=== PATIENT | male | born 1985 | race Caucasian/White ===

== ENCOUNTER 2016-07-05 02:43 | Emergency (ER) | payer OTHER ==
[~2016-07-05] VITALS: Ht 167.6 cm; Wt 83.9 kg
[2016-07-05 02:49] VITALS: BP 139/85
[2016-07-05] MEDS ORDERED: HYDROmorphone HCL 1 MG/ML SYRINGE (J1170) IV ONE ×2 (03:45→06:15)
[2016-07-05] MEDS ORDERED: NS 1,000 ML IV ONE (03:45)
[2016-07-05] MEDS ORDERED: METOCLOPRAMIDE INJ 10MG/2ML VIAL (J2765) IV ONE (03:45)
[2016-07-05 04:14] LABS: BASO % 0.1 % (0.0-1.0); EOS # 0.2 K/mm3 (0.0-0.50); EOS % 1.5 % (0.0-3.0); LARGE UNSTAINED CELL # 0.1 K/mm3 (0.0-0.4); LARGE UNSTAINED CELL % 0.5 % (0.0-4.0); LYMPH # 0.7 K/mm3 (1.5-4.5); LYMPH % 3.7 % (24.0-44.0); MEAN CORPUSCULAR HEMOGLOBIN 30.9 pg (27.0-33.0); MEAN CORPUSCULAR HGB CONC 35.2 g/dl (32.0-36.5); MEAN CORPUSCULAR VOLUME 87.6 fl (80.0-96.0); MONO # 0.7 K/mm3 (0.0-0.8); MONO % 4.1 % (0.0-5.0); NEUTROPHILS # 14.6 K/mm3 (1.8-7.7); NEUTROPHILS % 90.1 % (36.0-66.0); PLATELET COUNT, AUTOMATED 279 k/mm3 (150-450); RED CELL DISTRIBUTION WIDTH 11.3 % (11.5-14.5); WHITE BLOOD COUNT 16.2 K/mm3 (4.0-10.0)
[2016-07-05 04:42] LABS: ALBUMIN 4.4 GM/DL (3.2-5.2); ALKALINE PHOSPHATASE 68 U/L (45-117); ALT/SGPT 36 U/L (12-78); AMYLASE 56 U/L (25-115); ANION GAP 8 MEQ/L (8-16); AST/SGOT 27 U/L (15-37); BILIRUBIN,DIRECT 0.2 MG/DL (0.0-0.2); BILIRUBIN,TOTAL 1.1 MG/DL (0.2-1.0); BLOOD UREA NITROGEN 15 MG/DL (7-18); CALCIUM LEVEL 8.7 MG/DL (8.5-10.1); CARBON DIOXIDE LEVEL 29 MEQ/L (21-32); CHLORIDE LEVEL 102 MEQ/L (98-107); CREATININE FOR GFR 1.21 MG/DL (0.70-1.30); GLOMERULAR FILTRATION RATE > 60.0 (>60); GLUCOSE, FASTING 90 MG/DL (70-105); POTASSIUM SERUM 3.7 MEQ/L (3.5-5.1); SODIUM LEVEL 139 MEQ/L (136-145); TOTAL PROTEIN 8.4 GM/DL (6.4-8.2)
[2016-07-05] MEDS ORDERED: ISOVUE-370 76% 100ML VIAL (Q9967) As Ordered ONE (04:46)
--- NOTE | 2016-07-05 05:40 | REPUSA ---
CLINICAL HISTORY: Abdominal pain. TECHNIQUE: Multiple axial, sagittal and coronal CT images were obtained through the abdomen and pelvi s after administration of oral and intravenous contrast material. COMMENTS: The liver is mildly enlarged with decreased attenuation without mass or defect. There is no intra or extrahepatic biliary ductal dilatation. The spleen is normal. The gallbladder is within normal limits . The pancreas is of normal contour and attenuation characteristics. There is no evidence of adrenal mass. Both kidneys demonstrate prompt and equal nephrograms. The kidneys are normal in size, shape and conf iguration. There is no evidence of renal or ureteral mass. No renal or ureteral calculi are identifie d. There is no hydroureter or hydronephrosis. No evidence for appendicitis. There is no bowel wall thickening. No evidence for small or large geovanni l obstruction. There is no evidence of abdominal ascites or lymphadenopathy. Fluid-filled stomach. Fl uid-filled bowels. There is no evidence of intrinsic or extrinsic bladder mass. There is no pelvic ascites or lymphadeno billy. Images of the lung bases show no evidence of pleural or parenchymal mass. There are no pleural effusi ons. The bony structures are free of lytic or blastic lesions. IMPRESSION: Enteritis. Normal appendix. Thank you for your kind referral of this patient.
[2016-07-05] MEDS ORDERED: ZOFR4TAB3 PO (06:42)
== END 2016-07-05 06:59 | disposition home or self-care (01) ==
LOC: M ED 03:30
DX: A08.4 Viral intestinal infection, unspecified (principal)
CPT/HCPCS: 74177; 80048; 80076; 81001; 82150; 83690; 85025; 87086; 96374; 96375; 96376; 99282; J1170; J2765; Q9967

== ENCOUNTER → 2018-11-18 | Outpatient (REF) | payer OTHER ==
[~2018-11-18] MED LIST: ZOFR4TAB14 PO
[2018-11-18 13:41] LABS: BASO # 0.1 10^3/uL (0.0-0.2); BASO % 0.9 % (0.0-1.0); EOS # 0.1 10^3/uL (0.0-0.50); EOS % 1.3 % (0.0-3.0); HEMATOCRIT 44.4 % (42.0-52.0); HEMOGLOBIN 15.1 g/dl (13.5-17.5); LYMPH # 1.3 10^3/uL (1.5-4.5); LYMPH % 24.3 % (24.0-44.0); MEAN CORPUSCULAR HEMOGLOBIN 30.8 pg (27.0-33.0); MEAN CORPUSCULAR VOLUME 90.6 fl (80.0-96.0); MONO # 0.4 10^3/uL (0.0-0.8); MONO % 7.9 % (0.0-5.0); NEUTROPHILS # 3.6 10^3/uL (1.8-7.7); NEUTROPHILS % 65.2 % (36.0-66.0); PLATELET COUNT, AUTOMATED 317 10^3/uL (150-450); WHITE BLOOD COUNT 5.5 10^3/uL (4.0-10.0)
[2018-11-18 14:03] LABS: ALBUMIN 4.3 GM/DL (3.2-5.2); ALT/SGPT 23 U/L (12-78); BILIRUBIN,TOTAL 0.8 MG/DL (0.2-1.0); BLOOD UREA NITROGEN 14 MG/DL (7-18); CALCIUM LEVEL 9.5 MG/DL (8.5-10.1); CARBON DIOXIDE LEVEL 33 MEQ/L (21-32); CHLORIDE LEVEL 106 MEQ/L (98-107); CHOLESTEROL LEVEL 182 MG/DL (<200); CHOLESTEROL RISK RATIO 3.433 (<5); CREATININE FOR GFR 1.11 MG/DL (0.70-1.30); GLOMERULAR FILTRATION RATE > 60.0 (>60); GLUCOSE, FASTING 84 MG/DL (70-100); HDL CHOLESTEROL 53 MG/DL (>40); LDL CHOLESTEROL 104 MG/DL (<100); NON-HDL-C 129 MG/DL; POTASSIUM SERUM 4.9 MEQ/L (3.5-5.1); SODIUM LEVEL 141 MEQ/L (136-145); TOTAL PROTEIN 7.9 GM/DL (6.4-8.2); TRIGLYCERIDES LEVEL 124 MG/DL (<150)
== END ==
LOC: M SFHCADAM 09:58
PROVIDERS: ATTEND Physician Assistant Medical
DX: Z00.00 Encounter for general adult medical examination without abnormal findings (principal)

== ENCOUNTER → 2020-02-27 | Outpatient (REF) | payer OTHER | LOC: M SMT 13:13 | PROVIDERS: ATTEND Urology | DX: Z30.2 Encounter for sterilization (principal) ==

== ENCOUNTER → 2020-05-03 | Outpatient (REF) | payer OTHER ==
[2020-05-03 09:03] LABS: SEMEN APPEARANCE OPAQUE (OPAQUE); SEMEN VISCOSITY LIQUID (LIQUID); WBC CONCENTRATION <=1 M/ml (<=1 M/ml)
== END ==
LOC: M SMT 08:41
PROVIDERS: ATTEND Urology
DX: Z98.52 Vasectomy status (principal)

== ENCOUNTER 2024-06-14 21:13 | Emergency (ER) | payer OTHER ==
[~2024-06-14] VITALS: Ht 167.6 cm; Wt 88.0 kg
[2024-06-14 21:15] VITALS: TEMP 98.9
[2024-06-14] MEDS ORDERED: IBUP80TA PO (21:18)
[2024-06-14 23:46] VITALS: BP 121/77; O2SAT 99
== END 2024-06-15 00:09 | disposition home or self-care (01) ==
LOC: M ED 21:13
DX: S80.12XA Contusion of left lower leg, initial encounter (principal); W55.12XA Struck by horse, initial encounter; Y92.009 Unspecified place in unspecified non-institutional (private) residence as the place of occurrence of the external cause; Y93.9 Activity, unspecified; Y99.9 Unspecified external cause status; K21.9 Gastro-esophageal reflux disease without esophagitis

== ENCOUNTER 2024-09-01 21:48 | Emergency (ER) | payer OTHER ==
[~2024-09-01] VITALS: Ht 170.2 cm; Wt 85.9 kg
[~2024-09-01 21:48] MED LIST changes: +IBUP80TA PO
[2024-09-01 21:51] VITALS: BP 143/93; TEMP 99.3; O2SAT 98
[2024-09-01 22:42] LABS: BASO # 0.1 10^3/uL (0.0-0.2); BASO % 0.3 % (0.0-1.0); EOS # 0.1 10^3/uL (0.0-0.5); EOS % 0.5 % (0.0-3.0); HEMATOCRIT 40.7 % (42.0-52.0); HEMOGLOBIN 14.6 g/dl (13.5-17.5); LYMPH # 1.4 10^3/uL (1.5-5.0); LYMPH % 8.5 % (24.0-44.0); MEAN CORPUSCULAR HEMOGLOBIN 32.2 pg (27.0-33.0); MEAN CORPUSCULAR HGB CONC 35.9 g/dl (32.0-36.5); MEAN CORPUSCULAR VOLUME 89.8 fl (80.0-96.0); MONO # 1.3 10^3/uL (0.0-0.8); MONO % 7.9 % (2.0-8.0); NEUTROPHILS # 13.1 10^3/uL (1.5-8.5); NEUTROPHILS % 82.4 % (36.0-66.0); PLATELET COUNT, AUTOMATED 451 10^3/uL (150-450); RED BLOOD COUNT 4.53 10^6/uL (4.30-6.10); WHITE BLOOD COUNT 15.9 10^3/uL (4.0-10.0)
[2024-09-01 23:11] LABS: CALCIUM LEVEL 8.9 MG/DL (8.5-10.1); CREATININE FOR GFR 1.1 MG/DL (0.70-1.30); POTASSIUM SERUM 4.2 MMOL/L (3.5-5.1)
== END 2024-09-02 00:52 | disposition left against medical advice (07) ==
LOC: M ED 21:48
DX: Z53.21 Procedure and treatment not carried out due to patient leaving prior to being seen by health care provider (principal)